=== PATIENT | male | born 1975 | race Hispanic/Latino ===

== ENCOUNTER 2016-09-12 11:47 | Outpatient (CLI) | payer OTHER ==
--- NOTE | 2016-09-12 16:54 | Fluoroscopy Report ---
LEFT ANKLE INJECTION WITH FLUOROSCOPIC GUIDANCE FOR MR ARTHROGRAM OF THE ANKLE: PROCEDURE: The patient's skin surface was prepped and draped using sterile technique. The dorsalis pedis artery was palpated and marked. A 22-gauge spinal needle was advanced into the ankle joint medial to the dorsalis pedis artery. Initial injection of approximately 2 cc of Omnipaque-180 confirmed the intra-articular location of the needle tip. Subsequently, 8 cc of a dilute mixture of gadolinium was injected for further imaging. The patient tolerated the procedure well and was sent to the MRI suite.
== END 2016-09-12 11:48 | disposition home or self-care (01) ==
LOC: FLUORO 11:47
PROVIDERS: ATTEND Orthopaedic Surgery
DX: M25.372 Other instability, left ankle (principal)
CPT/HCPCS: 20605; 73722; 77002; A9577; Q9965